=== PATIENT | female | born 1990 | race Caucasian/White ===

== ENCOUNTER 2019-02-01 01:02 | Inpatient (IN) | payer BC ==
[2019-02-01] MEDS ORDERED: Oxytocin 10 Units/1 ML SDV ONE (23:57)
[2019-02-02] MEDS ORDERED: Lidocaine 1% 50 ML MDV ONE (00:03)
[2019-02-02] MEDS ORDERED: Sodium Chloride 0.9% 2.5 ML Syringe FLUSH PRN (00:08)
[2019-02-02] MEDS ORDERED: Lidocaine 1% 50 ML MDV INJECT PRN (00:08)
[2019-02-02] MEDS ORDERED: Water For Irrigation,Sterile 1,000 ML Container IRR PRN (00:08)
[2019-02-02] MEDS ORDERED: Tranexamic Acid 1,000 MG in Sodium Chloride 0.9% 100 ML IV PRN (00:08)
[2019-02-02] MEDS ORDERED: Misoprostol 200 MCG Tab PO PRN (00:08)
[2019-02-02] MEDS ORDERED: Methylergonovine 0.2 MG/1 ML Amp IM PRN (00:08)
[2019-02-02] MEDS ORDERED: Carboprost Tromethamine 250 MCG/1 ML Amp IM PRN (00:08)
[2019-02-02] MEDS ORDERED: Ondansetron 4 MG/2 ML SDV IV PRN (00:08)
[2019-02-02] MEDS ORDERED: Butorphanol 1 MG/ML SDV IVPUSH PRN (00:08)
[2019-02-02] MEDS ORDERED: Sodium Chloride 0.9% 10 ML SDV IV PRN (00:08)
[2019-02-02] MEDS ORDERED: Nalbuphine 10 MG/1 ML Vial IVPUSH PRN (00:08)
[2019-02-02] MEDS ORDERED: Sodium Chloride 0.9% 10 ML Syringe FLUSH PRN (00:08)
[2019-02-02] MEDS ORDERED: Lactated Ringers 1,000 ML IV SCH (00:15)
[2019-02-02] MEDS ORDERED: Oxytocin/0.9 % Sodium Chloride 30 UNIT/500 ML BAG IV SCH (00:15)
[2019-02-02] MEDS ORDERED: Acetaminophen 500 MG Tab PO PRN (01:25)
[2019-02-02] MEDS ORDERED: Witch Hazel Medicated Pads 40/Jar TOP PRN (01:25)
[2019-02-02] MEDS ORDERED: oxyCODONE 5 MG Tab PO PRN (01:25)
[2019-02-02] MEDS ORDERED: Benzocaine/Menthol 20%-0.5% Spray 78 GM Cannister TOP PRN (01:25)
[2019-02-02] MEDS ORDERED: Ibuprofen 400 MG Tab PO PRN (01:25)
[2019-02-02] MEDS ORDERED: Lanolin 100% Cream 7 GM Tube TOP PRN (01:25)
[2019-02-02] MEDS ORDERED: Bisacodyl 10 MG Supp RECTAL PRN (01:25)
--- NOTE | 2019-02-02 01:32 | PCM.OPNOTE ---
- General Post-Op/Procedure Note Date of Surgery/Procedure: 02/02/19 Operative Procedure(s): /2nd MLL repaired Findings: Viable male APGARs 9, 9 weight pending. Spontaneous delivery intact placenta with 3 V cord. Pre Op Diagnosis: 40/2 week IUP. Labor/SROM Post-Op Diagnosis: Same Anesthesia Technique: Local, Other (see below) (pudendal) Primary Surgeon: Dionne Edwards EBL in mLs: 300 Complications: none known Condition: Good Free Text/Narrative:: Dictation [id number]
--- NOTE | 2019-02-02 02:18 | OR ---
SURGEON: Dionne Edwards M.D. DATE OF PROCEDURE: 02/02/2019 PREOPERATIVE DIAGNOSES: 1. A 40 and 2/7 weeks' intrauterine . 2. Active labor. 3. Spontaneous rupture of membranes. POSTOPERATIVE DIAGNOSES: 1. A 40 and 2/7 weeks' intrauterine . 2. Active labor. 3. Spontaneous rupture of membranes. PROCEDURE: 1. Spontaneous vaginal delivery. 2. Second-degree midline laceration repaired. PRIMARY SURGEON: Dionne Edwards M.D. ANESTHESIA: Local/pudendal. ESTIMATED BLOOD LOSS: 300 mL. FINDINGS: Viable male. score 9 at 1 minute and 9 at 5 minutes. Weight is pending. Spontaneous delivery, intact placenta, 3-vessel cord. DISPOSITION: Infant to nursery, mom in LDRP. PROCEDURE DETAILS: Dania is a 28-year-old, G1, P0, at 40 and 2/7 weeks' gestational age, who presented on the evening of 02/01/2019, with leakage of fluid at approximately 11:30 p.m. On initial examination, she was found to be spontaneously ruptured and is 10 cm, 100% effaced, +1 station. Therefore, she was admitted and she was feeling the urge to push. The patient began pushing efforts. Initially, was able to push to a +3 station, was placed in modified dorsal lithotomy position, was prepped and draped in the usual aseptic manner. To help facilitate pain relief, the patient did undergo pudendal block. The ischial notches on either side were able to be palpated and then was able to infiltrate the pudendal region with 5 mL of 1% lidocaine along the right side followed by the left side as well as approximately 3 mL along the midline perineum. The patient continued with pushing efforts and pushed adequately to a +4 station followed by delivery of the head, anterior shoulder, posterior shoulder, and remainder of the body without difficulty. The 's oropharynx and nares were bulb suctioned. Infant was vigorous and crying. was handed off to his mother with attending nursing staff at her side. After a delay, cord was clamped x2 and cut. Cord arterial, cord venous, cord blood sampling obtained. Light pressure was applied while the placenta was delivered spontaneously intact. Vigorous fundal uterine massage was then applied while 10 units of Pitocin was delivered via IM left thigh. Uterus remained firm. Hemostasis was evident. Upon inspection of cervix, vaginal sidewalls, and perineum, there was found to be a second- degree midline laceration, which was prepped with approximately 5 mL of 1% lidocaine, and repaired in usual fashion using 3-0 Vicryl. Once again, uterus remained firm, hemostasis evident. Sponge count, needle count, and instrument count was correct. The patient remained in LDRP, infant to nursery. DEBRA / CARLOS /[id number] MTDD
[2019-02-02] MEDS: Acetaminophen 500 MG Tab PO PRN ×2 (04:42→09:17)
[2019-02-02] MEDS: Ibuprofen 800 MG Tab PO PRN ×3 (04:43→20:46)
[2019-02-02] MEDS: Docusate Sodium 100 MG Cap PO PRN (09:12)
--- NOTE | 2019-02-02 12:19 | PCM.PNPP ---
- General Info Date of Service: 02/02/19 Functional Status: Reports: Pain Controlled, Tolerating Diet, Ambulating - Review of Systems General: Reports: Fatigue. Denies: Fever, Weakness Pulmonary: Denies: Shortness of Breath Cardiovascular: Denies: Chest Pain, Palpitations, Lightheadedness Gastrointestinal: Denies: Abdominal Pain, Nausea, Vomiting Genitourinary: Denies: Flank Pain Musculoskeletal: Reports: No Symptoms Skin: Reports: No Symptoms Neurological: Reports: No Symptoms Psychiatric: Reports: No Symptoms - General Info Date of Service: 02/02/19 - Patient Data Vital Signs - Most Recent: Last Vital Signs Temp 36.6 C 02/02/19 07:17 Pulse 86 02/02/19 07:17 Resp 17 02/02/19 07:17 BP 115/67 02/02/19 07:17 Pulse Ox 97 02/02/19 07:17 Weight - Most Recent: 70.76 kg Lab Results - Last 24 Hours: Laboratory Results - last 24 hr 02/02/19 02/02/19 02/02/19 Range/Units 01:02 01:38 01:38 WBC 16.75 H (4.0-11.0) K/uL RBC 4.04 L (4.30-5.90) M/uL Hgb 12.9 (12.0-16.0) g/dL Hct 36.6 (36.0-46.0) % MCV 90.6 (80.0-98.0) fL MCH 31.9 (27.0-32.0) pg MCHC 35.2 (31.0-37.0) g/dL RDW Std Deviation 42.6 (28.0-62.0) fl RDW Coeff of Sonia 13 (11.0-15.0) % Plt Count 143 L (150-400) K/uL MPV 11.10 (7.40-12.00) fL Cord ABG pH 7.256 (7.18-7.38) Cord ABG Base Excess -8 (-10--2) Cord VBG pH 7.359 (7.25-7.45) Cord VBG Base Excess -8 (-10--2) Blood Type AB POSITIVE Antibody Screen NEGATIVE Med Orders - Current: Current Medications Acetaminophen (Tylenol Extra Strength) 500 mg PO Q4H PRN PRN Reason: Pain Acetaminophen (Tylenol Extra Strength) 1,000 mg PO Q4H PRN PRN Reason: Pain Last Admin: 02/02/19 09:17 Dose: 1,000 mg Benzocaine/Menthol (Dermoplast Pain Relief 20%-0.5% [place]) 78 gm TOP ASDIRECTED PRN PRN Reason: Perineal Comfort Measure Last Admin: 02/02/19 04:42 Dose: 1 spray Bisacodyl (Dulcolax) 10 mg RECTAL ONETIME PRN PRN Reason: Constipation Carboprost Tromethamine (Hemabate Ds) 250 mcg IM ASDIRECTED PRN PRN Reason: Post Hemorrhage Docusate Sodium (Colace) 100 mg PO BID PRN PRN Reason: Constipation Last Admin: 02/02/19 09:12 Dose: 100 mg Emollient Ointment (Lansinoh Hpa) 0 gm TOP ASDIRECTED PRN PRN Reason: Sore Nipples Lactated Ringer's (Ringers, Lactated) 1,000 mls @ 150 mls/hr IV ASDIRECTED SANDRA Oxytocin/Sodium Chloride (Oxytocin 30 Unit/500 Ml-Ns) 30 unit in 500 mls @ 555 mls/hr IV TITRATE SANDRA Tranexamic Acid 1,000 mg/ (Sodium Chloride) 110 mls @ 660 mls/hr IV ONETIME PRN PRN Reason: Bleeding Ibuprofen (Motrin) 400 mg PO Q4H PRN PRN Reason: Pain Ibuprofen (Motrin) 800 mg PO Q6H PRN PRN Reason: Pain Last Admin: 02/02/19 04:43 Dose: 800 mg Lidocaine HCl (Xylocaine 1%) 50 ml INJECT ONETIME PRN PRN Reason: Laceration repair Methylergonovine Maleate (Methergine) 0.2 mg IM ASDIRECTED PRN PRN Reason: Post Hemorrhage Nalbuphine HCl (Nubain) 10 mg IVPUSH Q1H PRN PRN Reason: Pain (severe 7-10) Ondansetron HCl (Zofran) 4 mg IV Q4H PRN PRN Reason: Nausea/Vomiting Oxycodone HCl (Oxycodone) 5 mg PO Q2H PRN PRN Reason: Pain Sodium Chloride (Saline Flush) 10 ml FLUSH ASDIRECTED PRN PRN Reason: Keep Vein Open Sodium Chloride (Saline Flush) 2.5 ml FLUSH ASDIRECTED PRN PRN Reason: Keep Vein Open Sodium Chloride (Normal Saline) 10 ml IV ASDIRECTED PRN PRN Reason: IV Use Sterile Water (Sterile Water For Irrigation) 1,000 ml IRR ASDIRECTED PRN PRN Reason: delivery Virgilio Mack (Tucks) 1 pad TOP ASDIRECTED PRN PRN Reason: comfort care Last Admin: 02/02/19 04:42 Dose: 1 pad Discontinued Medications Butorphanol Tartrate (Stadol) 1 mg IVPUSH Q1H PRN PRN Reason: Pain Lidocaine HCl (Xylocaine 1%) Confirm Administered Dose 50 ml .ROUTE .STK-MED ONE Stop: 02/02/19 00:04 Last Admin: 02/02/19 01:23 Dose: 50 ml Misoprostol (Cytotec) 200 mcg PO ONETIME PRN PRN Reason: Post Hemorrhage Oxytocin (Pitocin) Confirm Administered Dose 10 unit .ROUTE .STK-MED ONE Stop: 02/01/19 23:58 Last Admin: 02/02/19 01:22 Dose: 10 unit - Infant Interaction Support Person: - Recovery Exam Fundal Tone: Firm Fundal Level: 1 Fingerbreadths Below Umbilicus Fundal Placement: Midline Lochia Amount: Scant Lochia Color: Rubra/Red Episiotomy/Laceration: Approximated Bladder Status: Voiding Urinary Elimination: Voided - Exam General: Alert Lungs: Normal Respiratory Effort Cardiovascular: Regular Rate, Regular Rhythm GI/Abdominal Exam: Normal Bowel Sounds, Soft Extremities: Pedal Edema (trace). No: Charles's Sign Skin: Warm, Dry, Intact Neurological: No New Focal Deficit Psy/Mental Status: Alert, Normal Affect, Normal Mood - Problem List & Annotations (1) Vaginal delivery SNOMED Code(s): 876330998 Code(s): O80 - ENCOUNTER FOR FULL-TERM UNCOMPLICATED DELIVERY Status: Acute Current Visit: Yes - Problem List Review Problem List Initiated/Reviewed/Updated: Yes - My Orders Last 24 Hours: My Active Orders 02/02/19 00:08 Patient Status [ADT] Routine Heart Tones [RC] CONTINUOUS Non Stress Test [RC] PER UNIT ROUTINE Vaginal Exam [RC] PRN Vital Signs [RC] PER UNIT ROUTINE Carboprost Tromethamine [Hemabate DS] 250 mcg IM ASDIRECTED PRN Lidocaine 1% [Xylocaine 1%] 50 ml INJECT ONETIME PRN Methylergonovine [Methergine] 0.2 mg IM ASDIRECTED PRN Nalbuphine [Nubain] 10 mg IVPUSH Q1H PRN Ondansetron [Zofran] 4 mg IV Q4H PRN Sodium Chloride 0.9% [Normal Saline] 10 ml IV ASDIRECTED PRN Sodium Chloride 0.9% [Saline Flush] 10 ml FLUSH ASDIRECTED PRN Sodium Chloride 0.9% [Saline Flush] 2.5 ml FLUSH ASDIRECTED PRN Tranexamic Acid [Cyklokapron] 1,000 mg Sodium Chloride 0.9% [Normal Saline] 100 ml IV ONETIME Water For Irrigation,Sterile [Sterile Water for Irrigation] 1,000 ml IRR ASDIRECTED PRN Peripheral IV Insertion Adult [OM.PC] Routine Resuscitation Status Routine 02/02/19 00:15 Lactated Ringers [Ringers, Lactated] 1,000 ml IV ASDIRECTED Oxytocin/0.9 % Sodium Chloride [Oxytocin 30 Unit/500 ML-NS] 30 unit in 500 ml IV TITRATE 02/02/19 01:25 Patient Status [ADT] Routine May Shower [RC] ASDIRECTED Up ad Stefania [RC] ASDIRECTED Vital Signs [RC] PER UNIT ROUTINE Acetaminophen [Tylenol Extra Strength] 1,000 mg PO Q4H PRN Acetaminophen [Tylenol Extra Strength] 500 mg PO Q4H PRN Benzocaine/Menthol [Dermoplast Pain Relief 20%-0.5% Dinuba] 78 gm TOP ASDIRECTED PRN Bisacodyl [Dulcolax] 10 mg RECTAL ONETIME PRN Docusate Sodium [Colace] 100 mg PO BID PRN Ibuprofen [Motrin] 400 mg PO Q4H PRN Ibuprofen [Motrin] 800 mg PO Q6H PRN Lanolin [Lansinoh HPA] See Dose Instructions TOP ASDIRECTED PRN Witch Martina [Tucks] 1 pad TOP ASDIRECTED PRN oxyCODONE 5 mg PO Q2H PRN Assess Lochia [WOMSER] Per Unit Routine Assess Uterine Involution [WOMSER] Per Unit Routine Ice Therapy [OM.PC] Per Unit Routine Perineal Care [OM.PC] Per Unit Routine Peripheral IV Discontinue [OM.PC] Routine Sitz Bath [OM.PC] Per Unit Routine 02/02/19 15:00 HEMOGLOBIN/HEMATOCRIT,HH [HEME] Routine 02/02/19 Breakfast Regular Diet [DIET] - Assessment Assessment:: PPD 0 status post - Plan Plan:: Continue cares.
[2019-02-03] MEDS: Ibuprofen 800 MG Tab PO PRN (08:10)
[2019-02-03] MEDS: Docusate Sodium 100 MG Cap PO PRN (08:13)
[2019-02-03 08:18] VITALS: BP 117/65
--- NOTE | 2019-02-03 10:00 | PCM.PNPP ---
- General Info Date of Service: 02/03/19 Functional Status: Reports: Pain Controlled, Tolerating Diet, Ambulating, Urinating - Review of Systems General: Denies: Fever, Weakness Pulmonary: Denies: Shortness of Breath Cardiovascular: Denies: Chest Pain, Palpitations, Lightheadedness Gastrointestinal: Denies: Abdominal Pain, Nausea, Vomiting Genitourinary: Denies: Flank Pain Musculoskeletal: Reports: No Symptoms Skin: Reports: No Symptoms Neurological: Reports: No Symptoms Psychiatric: Reports: No Symptoms - General Info Date of Service: 02/03/19 - Patient Data Vital Signs - Most Recent: Last Vital Signs Temp 36.3 C 02/03/19 08:17 Pulse 67 02/03/19 08:17 Resp 18 02/03/19 08:17 BP 117/65 02/03/19 08:17 Pulse Ox 93 L 02/03/19 08:17 Weight - Most Recent: 70.76 kg Lab Results - Last 24 Hours: Laboratory Results - last 24 hr 02/02/19 02/02/19 Range/Units 01:38 15:08 Hgb 11.5 L (12.0-16.0) g/dL Hct 33.3 L (36.0-46.0) % Antibody Screen NEGATIVE Med Orders - Current: Current Medications Acetaminophen (Tylenol Extra Strength) 500 mg PO Q4H PRN PRN Reason: Pain Acetaminophen (Tylenol Extra Strength) 1,000 mg PO Q4H PRN PRN Reason: Pain Last Admin: 02/02/19 09:17 Dose: 1,000 mg Benzocaine/Menthol (Dermoplast Pain Relief 20%-0.5% [place]) 78 gm TOP ASDIRECTED PRN PRN Reason: Perineal Comfort Measure Last Admin: 02/02/19 04:42 Dose: 1 spray Bisacodyl (Dulcolax) 10 mg RECTAL ONETIME PRN PRN Reason: Constipation Carboprost Tromethamine (Hemabate Ds) 250 mcg IM ASDIRECTED PRN PRN Reason: Post Hemorrhage Docusate Sodium (Colace) 100 mg PO BID PRN PRN Reason: Constipation Last Admin: 02/03/19 08:13 Dose: 100 mg Emollient Ointment (Lansinoh Hpa) 0 gm TOP ASDIRECTED PRN PRN Reason: Sore Nipples Lactated Ringer's (Ringers, Lactated) 1,000 mls @ 150 mls/hr IV ASDIRECTED [facility] Oxytocin/Sodium Chloride (Oxytocin 30 Unit/500 Ml-Ns) 30 unit in 500 mls @ 555 mls/hr IV TITRATE SANDRA Tranexamic Acid 1,000 mg/ (Sodium Chloride) 110 mls @ 660 mls/hr IV ONETIME PRN PRN Reason: Bleeding Ibuprofen (Motrin) 400 mg PO Q4H PRN PRN Reason: Pain Ibuprofen (Motrin) 800 mg PO Q6H PRN PRN Reason: Pain Last Admin: 02/03/19 08:10 Dose: 800 mg Lidocaine HCl (Xylocaine 1%) 50 ml INJECT ONETIME PRN PRN Reason: Laceration repair Methylergonovine Maleate (Methergine) 0.2 mg IM ASDIRECTED PRN PRN Reason: Post Hemorrhage Nalbuphine HCl (Nubain) 10 mg IVPUSH Q1H PRN PRN Reason: Pain (severe 7-10) Ondansetron HCl (Zofran) 4 mg IV Q4H PRN PRN Reason: Nausea/Vomiting Oxycodone HCl (Oxycodone) 5 mg PO Q2H PRN PRN Reason: Pain Sodium Chloride (Saline Flush) 10 ml FLUSH ASDIRECTED PRN PRN Reason: Keep Vein Open Sodium Chloride (Saline Flush) 2.5 ml FLUSH ASDIRECTED PRN PRN Reason: Keep Vein Open Sodium Chloride (Normal Saline) 10 ml IV ASDIRECTED PRN PRN Reason: IV Use Sterile Water (Sterile Water For Irrigation) 1,000 ml IRR ASDIRECTED PRN PRN Reason: delivery Witch Martina (Tucks) 1 pad TOP ASDIRECTED PRN PRN Reason: comfort care Last Admin: 02/02/19 04:42 Dose: 1 pad Discontinued Medications Butorphanol Tartrate (Stadol) 1 mg IVPUSH Q1H PRN PRN Reason: Pain Lidocaine HCl (Xylocaine 1%) Confirm Administered Dose 50 ml .ROUTE .STK-MED ONE Stop: 02/02/19 00:04 Last Admin: 02/02/19 01:23 Dose: 50 ml Misoprostol (Cytotec) 200 mcg PO ONETIME PRN PRN Reason: Post Hemorrhage Oxytocin (Pitocin) Confirm Administered Dose 10 unit .ROUTE .STK-MED ONE Stop: 02/01/19 23:58 Last Admin: 02/02/19 01:22 Dose: 10 unit - Interaction Support Person: - Recovery Exam Fundal Tone: Firm Fundal Level: 2 Fingerbreadths Below Umbilicus Fundal Placement: Midline Lochia Amount: Scant Lochia Color: Rubra/Red Perineum Description: Edematous Episiotomy/Laceration: Approximated Bladder Status: Nonpalpable, Voiding Urinary Elimination: Voided - Exam General: Alert, Oriented Lungs: Normal Respiratory Effort Cardiovascular: Regular Rate, Regular Rhythm GI/Abdominal Exam: Normal Bowel Sounds, Soft Extremities: Pedal Edema (trace). No: Charles's Sign Skin: Warm, Dry, Intact Neurological: No New Focal Deficit Psy/Mental Status: Alert, Normal Affect, Normal Mood - Problem List & Annotations (1) Vaginal delivery SNOMED Code(s): 651251673 Code(s): O80 - ENCOUNTER FOR FULL-TERM UNCOMPLICATED DELIVERY Status: Acute Current Visit: Yes - Problem List Review Problem List Initiated/Reviewed/Updated: Yes - My Orders Last 24 Hours: My Active Orders 02/03/19 09:58 Ready for Discharge [RC] PER UNIT ROUTINE - Assessment Assessment:: PPD 1 status post - Plan Plan:: VS and labs are reassuring. Would like to go home. Discharge instructions reviewed. Follow up at [facility] 6 weeks. Discharge to home today.
== END 2019-02-03 13:12 | disposition home or self-care (01) | DRG 560 ==
LOC: MW.OB 01:02 → OBSVTOIN 02-02 01:02 → MW.OB 02-02 02:56
PROVIDERS: ADMIT Obstetrics & Gynecology; ATTEND Obstetrics & Gynecology
PROC: 10E0XZZ Delivery of Products of Conception, External Approach (ICD-10-PCS; principal; 2019-02-02)
PROC: 0KQM0ZZ Repair Perineum Muscle, Open Approach (ICD-10-PCS; 2019-02-02)
DX: O48.0 Post-term pregnancy (principal); O70.1 Second degree perineal laceration during delivery; Z3A.40 40 weeks gestation of pregnancy; Z37.0 Single live birth
CPT/HCPCS: 36415; 59025; 59409; 82803; 85014; 85018; 85027; 86850; 86900; 86901; A9270-GY; J2001; J2590

== ENCOUNTER 2022-11-01 05:12 | Inpatient (IN) | payer BC ==
[2022-11-01] MEDS ORDERED: Sodium Chloride 0.9% 20 ML SDV IV PRN (07:21)
[2022-11-01] MEDS ORDERED: Terbutaline 1 MG/ML SDV SUBCUT PRN (07:21)
[2022-11-01] MEDS ORDERED: Carboprost Tromethamine 250 MCG/1 ML Amp IM PRN (07:21)
[2022-11-01] MEDS ORDERED: Tranexamic Acid 1,000 MG in Sodium Chloride 0.9% 100 ML IV PRN (07:21)
[2022-11-01] MEDS ORDERED: Lidocaine 1% 50 ML MDV INJECT PRN (07:21)
[2022-11-01] MEDS ORDERED: Sodium Chloride 0.9% 2.5 ML Syringe FLUSH PRN (07:21)
[2022-11-01] MEDS ORDERED: Water For Irrigation,Sterile 1,000 ML Container IRR PRN (07:21)
[2022-11-01] MEDS ORDERED: Misoprostol 200 MCG Tab PO PRN (07:21)
[2022-11-01] MEDS ORDERED: Sodium Chloride 0.9% 10 ML Syringe FLUSH PRN (07:21)
[2022-11-01] MEDS ORDERED: Butorphanol 1 MG/ML SDV IVPUSH PRN (07:21)
[2022-11-01] MEDS ORDERED: Methylergonovine 0.2 MG/1 ML Amp IM PRN (07:21)
[2022-11-01] MEDS ORDERED: Lactated Ringers 1,000 ML IV SCH (07:30)
[2022-11-01] MEDS ORDERED: Oxytocin/0.9 % Sodium Chloride 30 UNIT/500 ML BAG IV SCH ×2 (07:30)
[2022-11-01] MEDS ORDERED: ePHEDrine 50 MG/ML SDV IVPUSH PRN ×2 (08:08)
[2022-11-01] MEDS ORDERED: Phenylephrine HCl In 0.9% NaCl 1 MG/10 ML Vial IVPUSH PRN (08:08)
[2022-11-01] MEDS ORDERED: Ropivacaine HCl/PF 400 MG in Premix Bag 1 BAG EPIDUR SCH (08:15)
[2022-11-01] MEDS ORDERED: Phenylephrine HCl 0.5 MG/5 ML AMP ONE (11:30)
[2022-11-01] MEDS ORDERED: Dexmedetomidine 200 MCG/2 ML SDV ONE (11:30)
[2022-11-01] MEDS ORDERED: Acetaminophen 500 MG Tab PO PRN (12:33)
[2022-11-01] MEDS ORDERED: Witch Hazel Medicated Pads 40/Jar TOP PRN (12:33)
[2022-11-01] MEDS ORDERED: Ibuprofen 400 MG Tab PO PRN (12:33)
[2022-11-01] MEDS ORDERED: Bisacodyl 10 MG Supp RECTAL PRN (12:33)
[2022-11-01] MEDS ORDERED: Docusate Sodium 100 MG Cap PO PRN (12:33)
[2022-11-01] MEDS ORDERED: Lanolin 100% Cream 7 GM Tube TOP PRN (12:33)
[2022-11-01] MEDS ORDERED: Benzocaine/Menthol 20%-0.5% Spray 78 GM Cannister TOP PRN (12:33)
[2022-11-01] MEDS ORDERED: oxyCODONE 5 MG Tab PO PRN (12:33)
[2022-11-01] MEDS: Ibuprofen 800 MG Tab PO PRN (16:35)
[2022-11-01] MEDS: Acetaminophen 500 MG Tab PO PRN ×2 (16:36→20:47)
[2022-11-01] MEDS: Phenylephrine HCl In 0.9% NaCl 1 MG/10 ML Vial IVPUSH SCH (19:09)
[2022-11-02] MEDS: Ibuprofen 800 MG Tab PO PRN (00:28)
[2022-11-02 08:08] VITALS: BP 99/69; PULSE 58
== END 2022-11-02 13:59 | disposition home or self-care (01) | DRG 560 ==
LOC: MW.OB 05:12 → MW.OBCHECK 05:12 → MW.OB 07:21 → MW.OBCHECK 07:21 → OBSVTOIN 12:14 → MW.OB 15:59
PROVIDERS: ADMIT Obstetrics & Gynecology; ATTEND Obstetrics & Gynecology
PROC: 10E0XZZ Delivery of Products of Conception, External Approach (ICD-10-PCS; principal; 2022-11-01)
PROC: 0HQ9XZZ Repair Perineum Skin, External Approach (ICD-10-PCS; 2022-11-01)
PROC: 3E0R3BZ Introduction of Anesthetic Agent into Spinal Canal, Percutaneous Approach (ICD-10-PCS; 2022-11-01)
PROC: 00HU33Z Insertion of Infusion Device into Spinal Canal, Percutaneous Approach (ICD-10-PCS; 2022-11-01)
DX: O48.0 Post-term pregnancy (principal); Z37.0 Single live birth; Z3A.40 40 weeks gestation of pregnancy; O70.0 First degree perineal laceration during delivery; Z20.822 Contact with and (suspected) exposure to COVID-19
CPT/HCPCS: 01967; 36415; 59025; 59409; 82803; 85014; 85018; 85027; 86592; 86850; 86900; 86901; A9270-GY; J2370; J2590; J3490; J7120; U0002

== ENCOUNTER 2024-09-23 08:45 | Day surgery (SDC) | payer BC ==
[~2024-09-23 08:45] MED LIST: Albuterol 0.083% 2.5 MG/3 ML Neb Soln NEB PRN; HYDROmorphone 1 MG/ML Syringe IVPUSH PRN; Metoclopramide 10 MG/2 ML SDV IVPUSH PRN; Morphine 2 MG/ML SYRINGE IVPUSH PRN; Naloxone 0.4 MG/ML SDV IVPUSH PRN; Ondansetron 4 MG/2 ML SDV IVPUSH PRN; Phenylephrine HCl In 0.9% NaCl 1 MG/10 ML Syringe IVPUSH PRN; fentaNYL 50 MCG/ML SDV IVPUSH PRN
[2024-09-23] MEDS ORDERED: Propofol 200 MG/20 ML SDV ONE (09:08)
[2024-09-23] MEDS ORDERED: fentaNYL 100 MCG/2 ML SDV ONE (09:08)
[2024-09-23] MEDS: Lactated Ringers 1,000 ML IV SCH (09:29)
[2024-09-23] MEDS: Scopalamine 1mg/3day Transdermal Patch TOP ONE (09:29)
[2024-09-23] MEDS ORDERED: Lidocaine 1% 5 ML VIAL ONE (09:57)
[2024-09-23] MEDS ORDERED: Ondansetron 4 MG/2 ML SDV ONE (09:57)
[2024-09-23] MEDS ORDERED: Dexamethasone 4 MG/ML 5 ML MDV ONE (09:57)
[2024-09-23] MEDS ORDERED: Midazolam 1 MG/ML 2 ML SDV ONE (09:59)
[2024-09-23 12:00] VITALS: BP 114/62; PULSE 64
== END 2024-09-23 11:44 | disposition home or self-care (01) ==
LOC: MW.SDS 08:45
PROVIDERS: ATTEND Obstetrics & Gynecology
DX: N85.8 Other specified noninflammatory disorders of uterus (principal); Z79.899 Other long term (current) drug therapy
CPT/HCPCS: 58563; A9270; J1100; J2250; J2405; J2704; J3010; J7120; 00952; J3490